=== PATIENT | female | born 1980 ===

== ENCOUNTER 2021-09-10 07:18 | Outpatient (CLI) | payer OTHER ==
--- NOTE | 2021-09-10 11:18 | MRI Report ---
PROCEDURE: Knee LT W/O INDICATIONS: KNEE PAIN TECHNIQUE: Noncontrast sagittal PD fast spin echo and T2 fast spin echo with fat saturation, sagittal 3-D spoile d GE with fat saturation; coronal T1 spin echo and PD fast spin echo with fat saturation, and axial P D fast spin echo with fat saturation through the knee. COMPARISON: None. FINDINGS: Image quality: Excellent. Anterior cruciate ligament: There is chronic complete tearing of the proximal anterior cruciate liga ment. Posterior cruciate ligament: Intact. Medial collateral ligament: Intact. Lateral collateral ligament: Intact. Medial meniscus: There is peripheral vertical longitudinal tearing of the posterior horn and body of the medial meniscus involving the outer third of meniscal tissue. Lateral meniscus: Intact. Medial and lateral tendons: The semimembranosus tendon insertions appear intact. Visualized portion s of the pes anserinus tendons appear normal. The popliteus tendon appears intact. Iliotibial band appears normal. Anterior structures: The quadriceps and patellar tendons appear intact. Patellar alignment is george l. No femoral trochlear dysplasia or ventral trochlear prominence. No edema in the infrapatellar fa t pad. Bones: No acute trabecular bone injury or fracture. Medial femorotibial cartilage: Deep cartilage fissuring is seen in the central weightbearing portion of the medial tibial plateau. Lateral femorotibial cartilage: There is multifocal cartilage fissuring in the central portion of th e lateral tibial plateau. Patellofemoral cartilage: Surface irregularity is seen in the articular cartilage at the medial face t and median ridge of the patella and at the medial femoral trochlea. Soft tissues: There is a small joint effusion. There is a small medial popliteal cyst. There is tra ce nonspecific prepatellar bursal fluid. The musculature surrounding the knee is normal in bulk. 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 2.Peripheral vertical longitudinal tear at the posterior horn and body of medial meniscus involving t he outer third of meniscal tissue. 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 4.Small joint effusion. Small medial popliteal cyst. Reviewed by: Bernard Bullard MD on 09/10/2021 11:16 AM PDT Approved by: Bernard Bullard MD on 09/10/2021 11:16 AM PDT Station ID: [id number]
== END 2021-09-10 07:19 | disposition home or self-care (01) ==
LOC: DI 07:18
PROVIDERS: ATTEND Student in an Organized Health Care Education/Training Program
DX: S83.512A Sprain of anterior cruciate ligament of left knee, initial encounter (principal); S83.242A Other tear of medial meniscus, current injury, left knee, initial encounter; M94.262 Chondromalacia, left knee; M25.462 Effusion, left knee; M71.22 Synovial cyst of popliteal space [Baker], left knee

== ENCOUNTER 2021-11-30 13:30 | Emergency (ER) | payer OTHER ==
[2021-11-30 13:45] VITALS: BP 126/75
[2021-11-30] MEDS ORDERED: LIDOCAINE PATCH 5% TOP STA (13:54)
--- NOTE | 2021-11-30 14:12 | ED Physician Documentation ---
PD HPI LOWER EXT INJURY - Stated complaint Stated Complaint: LT KNEE PX - Chief complaint Chief Complaint: Trauma Ext - History obtained from History obtained from: Patient - Additional information Additional information: Patient is a 41-year-old female presenting for evaluation of left knee pain that has been present for 2 days. 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 She was pushing a dresser 2 days ago and since that time has had worsening pain which is increased with ambulation. She has been taking ibuprofen and acetaminophen without any improvement. She does not take blood thinners. She denies injuries elsewhere. Review of Systems Constitutional: denies: Fever Nose: denies: Congestion Cardiac: denies: Chest pain / pressure Respiratory: denies: Dyspnea GI: denies: Abdominal Pain Skin: denies: Rash Musculoskeletal: reports: Joint pain Neurologic: denies: Head injury PD PAST MEDICAL HISTORY - Present Medications Home Medications: Ambulatory Orders Medication Instructions Recorded Confirmed Lidocaine Patch 5% [Lidoderm Patch] 1 patch TOP DAILY PRN #10 patch 11/30/21 - Allergies Allergies/Adverse Reactions: Allergies Allergy/AdvReac Type Severity Reaction Status Date / Time No Known Drug Allergies Allergy Verified 11/30/21 13:41 PD ED PE NORMAL - General General: Alert and oriented X 3, No acute distress, Well developed/nourished - HEENT HEENT: Atraumatic, Moist mucous membranes - Neck Neck: Supple, no meningeal sign - Cardiac Cardiac: Strong equal pulses - Respiratory Respiratory: No respiratory distress - Derm Derm: Warm and dry - Extremities Extremities: No deformity, No edema, No calf tenderness / cord. No: Normal ROM s pain (Pain with full extension or flexion past 90 degrees of L knee) PD ED PE EXPANDED - Extremities STEFFEN LE visual: 1 - swelling, tenderness Results - Vitals Vitals: Vital Signs - 24 hr 11/30/21 13:42 Temperature 36.6 C Heart Rate 79 Respiratory 16 Rate Blood Pressure 126/75 O2 Saturation 98 Oxygen O2 Source Room air PD MEDICAL DECISION MAKING - ED course Complexity details: reviewed results, re-evaluated patient ED course: Pt with L knee pain after recent injury. Xray negative for fracture/dislocation; no infection. Neurovascularly intact. Pt feeling better with lidocaine patch as well as immobilizer/crutches. Advised on need for close follow up and concerning symptoms to return for. Departure - Departure Disposition: 01 Home, Self Care Clinical Impression: Left knee injury Qualifiers: Encounter type: initial encounter Qualified Code(s): S89.92XA - Unspecified injury of left lower leg, initial encounter Condition: Stable Instructions: ED Knee Pain [facility] Prescriptions: Lidocaine Patch 5% [Lidoderm Patch] 1 patch TOP DAILY PRN #10 patch PRN Reason: pain Comments: You were evaluated for L knee pain. I do not see signs of a Broken or out of place bone on your x-ray but as you know there are many structures in the knee joint which could also be injured. We have applied a knee immobilizer and crutches and I would recommend continuing to use these as long as it is painful to ambulate. I would recommend close follow-up with orthopedic surgeon at the [facility]. I have also sent a prescription for lidocaine patches to [facility] in [place]. If you have any worsening symptoms please return to the emergency department. Discharge Date/Time: 11/30/21 14:43
--- NOTE | 2021-11-30 14:41 | XRAY Report ---
PROCEDURE: Knee 3 View LT INDICATIONS: pain TECHNIQUE: 3 views of the left knee(s) were acquired. COMPARISON: None. FINDINGS: Bones: No fractures or dislocations. No suspicious bony lesions. Soft tissues: Trace joint effusion. No suspicious soft tissue calcifications. IMPRESSION: No acute osseous abnormalities. Trace knee joint effusion. Reviewed by: Sarah Schaffer MD on 11/30/2021 2:40 PM PDT Approved by: Sarah Schaffer MD on 11/30/2021 2:40 PM PDT Station ID: [id number]
== END 2021-11-30 14:43 | disposition home or self-care (01) ==
LOC: ED 13:30
DX: S89.92XA Unspecified injury of left lower leg, initial encounter (principal); X58.XXXA Exposure to other specified factors, initial encounter
CPT/HCPCS: 73562; 99282; 99283; A9270

== ENCOUNTER 2023-04-06 13:52 | Outpatient (CLI) | payer OTHER ==
--- NOTE | 2023-04-06 20:56 | MRI Report ---
PROCEDURE: Cervical Spine WO INDICATIONS: NERVE ROOT AND PLEXUS DISORDER TECHNIQUE: Noncontrast sagittal T1 spin echo and T2 fast spin echo, sagittal STIR, foraminal oblique sagittal T2 fast spin echo, and axial gradient echo or T2 fast spin echo through the cervical spine. COMPARISON: None. FINDINGS: Image quality: Excellent. Alignment and Curvature: There is trace retrolisthesis of C5 on C6. Bone Marrow: Marrow demonstrates normal overall signal. Spinal Cord: Visualized spinal cord has normal size and signal. No cerebellar tonsillar herniation. Paraspinous Soft Tissues: No paravertebral masses. Prevertebral soft tissues are normal in thicknes s. Moderate disc desiccation most severe at C5-6. C2-C3: No disc bulge, spinal stenosis or foraminal narrowing. C3-C4: Mild disc bulge with small posterior central protrusion. Slight indentation of the anterior cecal sac without foraminal narrowing. C4-C5: Mild disc bulge with superimposed right posterior paracentral protrusion. There is mild narro wing of the right lateral recess. Mild spinal stenosis. Mild proximal right foraminal narrowing. C5-C6: Mild disc bulge with left posterior paracentral protrusion and moderate to severe compromise of the left lateral recess. Mild proximal left foraminal narrowing. C6-C7: Mild disc bulge without spinal stenosis or foraminal narrowing. C7-T1: No disc bulge, spinal stenosis or foraminal narrowing. IMPRESSION: Multilevel disc bulges with superimposed protrusions most severe at C4-5 and C5-6. Multilevel foraminal narrowing and compromise of the lateral recess most severe at C5-6 and C4-5. Reviewed by: Samira Aguilar MD on 04/06/2023 8:55 PM PST Approved by: Samira Aguilar MD on 04/06/2023 8:55 PM PST Station ID: [id number]
== END 2023-04-06 13:53 | disposition home or self-care (01) ==
LOC: DI 13:52
PROVIDERS: ATTEND Preventive Medicine Aerospace Medicine
DX: M50.221 Other cervical disc displacement at C4-C5 level (principal); M50.321 Other cervical disc degeneration at C4-C5 level; M48.02 Spinal stenosis, cervical region